=== PATIENT | female | born 1995 | race Two or more races ===

== ENCOUNTER 2022-08-26 10:44 | Outpatient (CLI) | payer OTHER | END 2022-08-26 11:55 | disposition home or self-care (01) | LOC: PRENATAL 10:44 | PROVIDERS: ATTEND Obstetrics & Gynecology Maternal & Fetal Medicine | DX: O35.9XX0 Maternal care for (suspected) fetal abnormality and damage, unspecified, not applicable or unspecified (principal); O35.3XX0 Maternal care for (suspected) damage to fetus from viral disease in mother, not applicable or unspecified; O44.00 Complete placenta previa NOS or without hemorrhage, unspecified trimester; Z3A.20 20 weeks gestation of pregnancy ==

== ENCOUNTER 2022-10-22 11:10 | Outpatient (CLI) | payer OTHER | END 2022-10-22 12:10 | disposition home or self-care (01) | LOC: PRENATAL 11:10 | PROVIDERS: ATTEND Obstetrics & Gynecology Maternal & Fetal Medicine | DX: O26.849 Uterine size-date discrepancy, unspecified trimester (principal); O44.00 Complete placenta previa NOS or without hemorrhage, unspecified trimester; Z3A.28 28 weeks gestation of pregnancy ==

== ENCOUNTER 2022-12-03 10:26 | Outpatient (CLI) | payer OTHER | END 2022-12-03 11:30 | disposition home or self-care (01) | LOC: PRENATAL 10:26 | PROVIDERS: ATTEND Obstetrics & Gynecology Maternal & Fetal Medicine | DX: O26.849 Uterine size-date discrepancy, unspecified trimester (principal); O36.8199 Decreased fetal movements, unspecified trimester, other fetus; Z3A.34 34 weeks gestation of pregnancy ==

== ENCOUNTER 2023-01-08 14:45 | Inpatient (IN) | payer OTHER ==
[~2023-01-08] VITALS: Ht 162.6 cm; Wt 72.6 kg
[2023-01-12] MEDS ORDERED: PRENATAL CAPLE1 EAC1 PO (08:17)
[2023-01-12] MEDS ORDERED: FOLIC ACID0.8 M1 PO (08:18)
[2023-01-12] MEDS ORDERED: LEXAPRO5 MG PO (08:18)
[2023-01-12] MEDS ORDERED: VALTREX1000 MG PO (08:19)
== END 2023-01-14 11:47 | disposition home or self-care (01) | DRG 807 ==
LOC: LDR 01-12 05:39 → OB/GYN 01-13 00:01 → LDR 01-13 14:45 → OB/GYN 01-14 11:47
PROVIDERS: ADMIT Obstetrics & Gynecology; ATTEND Obstetrics & Gynecology
PROC: 10E0XZZ Delivery of Products of Conception, External Approach (ICD-10-PCS; principal; 2023-01-12)
PROC: 0KQM0ZZ Repair Perineum Muscle, Open Approach (ICD-10-PCS; 2023-01-12)
PROC: 0UQG7ZZ Repair Vagina, Via Natural or Artificial Opening (ICD-10-PCS; 2023-01-12)
PROC: 4A1HXCZ Monitoring of Products of Conception, Cardiac Rate, External Approach (ICD-10-PCS; 2023-01-12)
PROC: 3E033VJ Introduction of Other Hormone into Peripheral Vein, Percutaneous Approach (ICD-10-PCS; 2023-01-12)
PROC: 3E0P7VZ Introduction of Hormone into Female Reproductive, Via Natural or Artificial Opening (ICD-10-PCS; 2023-01-12)
DX: O70.1 Second degree perineal laceration during delivery (principal); Z37.0 Single live birth; O71.82 Other specified trauma to perineum and vulva; Z3A.39 39 weeks gestation of pregnancy; Z20.822 Contact with and (suspected) exposure to COVID-19

== ENCOUNTER 2024-04-19 08:40 | Outpatient (CLI) | payer OTHER ==
[~2024-04-19 08:40] MED LIST: FOLIC ACID0.8 M1 PO; LEXAPRO5 MG PO; PRENATAL CAPLE1 EAC1 PO; VALTREX1000 MG PO
== END 2024-04-19 08:44 | disposition home or self-care (01) ==
LOC: PRENATAL 08:40
PROVIDERS: ATTEND Obstetrics & Gynecology Maternal & Fetal Medicine
DX: O36.80X0 Pregnancy with inconclusive fetal viability, not applicable or unspecified (principal); Z36.82 Encounter for antenatal screening for nuchal translucency; Z3A.12 12 weeks gestation of pregnancy

== ENCOUNTER 2024-06-13 11:36 | Outpatient (CLI) | payer OTHER | END 2024-06-13 11:37 | disposition home or self-care (01) | LOC: PRENATAL 11:36 | PROVIDERS: ATTEND Obstetrics & Gynecology Maternal & Fetal Medicine | DX: O35.00X0 Maternal care for (suspected) central nervous system malformation or damage in fetus, unspecified, not applicable or unspecified (principal); O35.3XX0 Maternal care for (suspected) damage to fetus from viral disease in mother, not applicable or unspecified; O44.00 Complete placenta previa NOS or without hemorrhage, unspecified trimester; Z3A.19 19 weeks gestation of pregnancy ==

== ENCOUNTER 2024-09-05 11:22 | Outpatient (CLI) | payer OTHER | END 2024-09-05 11:24 | disposition home or self-care (01) | LOC: PRENATAL 11:22 | PROVIDERS: ATTEND Obstetrics & Gynecology Maternal & Fetal Medicine | DX: O26.849 Uterine size-date discrepancy, unspecified trimester (principal); O36.8199 Decreased fetal movements, unspecified trimester, other fetus; O99.019 Anemia complicating pregnancy, unspecified trimester; Z3A.32 32 weeks gestation of pregnancy ==

== ENCOUNTER → 2024-10-11 10:17 | Outpatient (CLI) | payer OTHER ==
[~2024-10-11 10:17] MED LIST changes: +IRON325 MG PO; +PEPCID AC20 MG PO; +[UNRECOGNIZED DRUG - OTHER] PO
== END | disposition home or self-care (01) ==
LOC: PRENATAL 10:17
PROVIDERS: ATTEND Obstetrics & Gynecology Maternal & Fetal Medicine
DX: O26.849 Uterine size-date discrepancy, unspecified trimester (principal); O36.8199 Decreased fetal movements, unspecified trimester, other fetus; Z3A.37 37 weeks gestation of pregnancy

== ENCOUNTER 2024-10-27 11:59 | Inpatient (IN) | payer OTHER ==
[~2024-10-27] VITALS: Ht 162.6 cm; Wt 72.6 kg
[~2024-10-27 11:59] MED LIST changes: -IRON325 MG PO; -PEPCID AC20 MG PO; -[UNRECOGNIZED DRUG - OTHER] PO
[2024-10-31] VITALS (8 sets, daily range): BP systolic 93–112; BP diastolic 60–621
[2024-10-31] MEDS ORDERED: RINGERS SOLUTION,LACTATED 1,000 ML IV SCH (05:30)
[2024-10-31] MEDS ORDERED: AMPICILLIN SODIUM 2,000 MG VIAL IV STA (06:20)
[2024-10-31] MEDS ORDERED: PEPCID AC20 MG PO (06:29)
[2024-10-31] MEDS ORDERED: [UNRECOGNIZED DRUG - OTHER] PO (06:30)
[2024-10-31 06:44] LABS: BASO % 0.4 % (0.1-1.2); EOS # 0.08 (0.04-0.54); EOS % 1.5 % (0.7-7.0); HEMATOCRIT 37.6 % (34.1-44.9); HEMOGLOBIN 12.4 g/dL (11.2-15.7); LYMPH # 1.75 (1.18-3.74); LYMPH % 32.3 % (19.3-53.1); MEAN CORPUSCULAR HEMOGLOBIN 29.5 pg (25.6-32.2); MONO # 0.51 (0.24-0.82); MONO % 9.4 % (4.7-12.5); NEUT # 3.02 (1.56-6.13); NEUT % 55.7 % (34.0-71.1); PLATELET COUNT 146 K/uL (163-369); RED BLOOD COUNT 4.21 M/uL (3.93-5.22); RED CELL DISTRIBUTION WIDTH 14.2 % (11.6-14.4)
[2024-10-31 06:54] LABS: URINE APPEARANCE Clear; URINE BILIRRUBIN Negative (NEGATIVE); URINE BLOOD Negative; URINE COLOR Yellow; URINE GLUCOSE Negative (NEGATIVE); URINE KETONE Negative (NEGATIVE); URINE LEUKOCYTE Small; URINE NITRATE Negative; URINE PROTEIN Negative (NEGATIVE); URINE UROBILINOGEN 0.2 E.U./dl
[2024-10-31 06:58] LABS: URINE BACTERIA 742.8 uL (0.0-1933); URINE EPITHELIAL CELLS 45.7 uL (0.0-38.8); URINE RBC 4.7 uL (0.0-20.8); URINE WBC 53.6 uL (0.0-23.2)
[2024-10-31 07:09] LABS: INR < 0.93; PARTIAL THROMBOPLASTIN TIME 23.6 SECONDS (22.0-34.0); PROTHROMBIN TIME 10.2 SECONDS (9.0-11.5)
[2024-10-31 07:21] LABS: ALBUMIN 2.4 gm/dL (3.4-5.0); BILIRUBIN TOTAL 0.27 mg/dL (0.3-1.2); CALCIUM 9.3 mg/dL (8.5-10.1); CREATININE SERUM 0.4 mg/dL (0.55-1.02); GFR 190.06; GLOBULINA 3.6 G/DL (2.4-3.5); POTASSIUM 3.61 mEq/L (3.5-5.1)
[2024-10-31] MEDS ORDERED: OXYTOCIN 20 UNITS/500ML RL PIGGYBAG IV ONE (07:29)
[2024-10-31] MEDS ORDERED: OXYTOCIN 500 ML IV ONE (07:39)
[2024-10-31] MEDS ORDERED: AMPICILLIN SODIUM 1,000 MG VIAL IV SCH (09:00)
[2024-10-31] MEDS ORDERED: MORPHINE SULFATE 4 MG/ML VIAL IV ONE (10:30)
[2024-10-31] MEDS ORDERED: OXYTOCIN 20 UNITS/1000ML RL PIGGYBAG IV ONE (11:01)
[2024-10-31] MEDS ORDERED: ERYTHROMYCIN BASE OPHT 1GM EACH TUBE OP ONE ×2 (11:01→12:00)
[2024-10-31] MEDS ORDERED: CHLORHEXIDINE GLUCONATE 120 ML BOTTLE TOP ONE ×2 (11:02→12:00)
[2024-10-31] MEDS ORDERED: LIDOCAINE HCL 1% 10ML VIAL ONE (11:02)
[2024-10-31] MEDS ORDERED: OXYTOCIN 1,000 ML IV ONE (12:00)
[2024-10-31] MEDS ORDERED: IBUprofen 400 MG TABLET PO PRN (12:45)
[2024-10-31] MEDS ORDERED: OXYTOCIN 1,000 ML IV SCH (13:15)
[2024-11-01] VITALS: BP 90/55
[2024-11-01 07:39] LABS: BASO % 0.5 % (0.1-1.2); EOS % 1.5 % (0.7-7.0); HEMATOCRIT 29.6 % (34.1-44.9); LYMPH # 1.56 (1.18-3.74); MEAN CORPUSCULAR HEMOGLOBIN 29.6 pg (25.6-32.2); MONO # 0.47 (0.24-0.82); MONO % 7.2 % (4.7-12.5); NEUT # 4.31 (1.56-6.13); NEUT % 66.2 % (34.0-71.1); RED BLOOD COUNT 3.34 M/uL (3.93-5.22); RED CELL DISTRIBUTION WIDTH 14.2 % (11.6-14.4)
[2024-11-01 07:57] LABS: PLATELET COUNT 128 K/uL (163-369)
[2024-11-01 07:58] LABS: HEMOGLOBIN 9.9 g/dL (11.2-15.7)
[2024-11-01 08:00] VITALS: BP 101/63
[2024-11-01 16:21] VITALS: BP 91/60
[2024-11-02] VITALS: BP 97/62
[2024-11-02] MEDS ORDERED: IRON325 MG PO (07:31)
[2024-11-02 08:36] VITALS: BP 109/69
== END 2024-11-02 15:33 | disposition home or self-care (01) | DRG 807 ==
LOC: LDR 10-31 05:20 → OB/GYN 10-31 05:20
PROVIDERS: ADMIT Obstetrics & Gynecology; ATTEND Obstetrics & Gynecology
PROC: 10E0XZZ Delivery of Products of Conception, External Approach (ICD-10-PCS; principal; 2024-10-31)
PROC: 4A1HXCZ Monitoring of Products of Conception, Cardiac Rate, External Approach (ICD-10-PCS; 2024-10-31)
DX: O80 Encounter for full-term uncomplicated delivery (principal); Z37.0 Single live birth; Z3A.40 40 weeks gestation of pregnancy